=== PATIENT | female | born 1985 | race Caucasian/White ===

== ENCOUNTER 2017-05-29 12:57 | Inpatient (IN) | payer MEDICAID ==
[~2017-05-29] VITALS: Ht 154.9 cm; Wt 63.5 kg
[2017-05-29] MEDS: DEXT 5%/LR + PITOCIN 20UNITS/L 1,000 ML IV SCH (13:17)
[2017-05-29] MEDS ORDERED: METHYLERGONOVINE MALEATE 0.2 MG/ML IM PRN (13:30)
[2017-05-29] MEDS ORDERED: LIDOCAINE HCL 1% 20ML VIAL (Pyxis) INJ INFIL SCH (13:30)
[2017-05-29] MEDS ORDERED: BUTORPHANOL TARTRATE 2 MG/ML VIAL IV PRN ×3 (13:30→23:00)
[2017-05-29] MEDS ORDERED: PENICILLIN G POTASSIUM 5 MMU in SODIUM CHLORIDE 0.9% 100 ML IV SCH (13:30)
[2017-05-29] MEDS ORDERED: NALOXONE HCL 0.4 MG/ML 1ML VIAL IM PRN (13:30)
[2017-05-29] MEDS ORDERED: PENICILLIN G POTASSIUM 5 MMU in DEXT 5% WATER 100 ML IV SCH (13:30)
[2017-05-29] MEDS: LACTATED RINGERS 1,000 ML IV SCH ×2 (14:17→14:28)
[2017-05-29] MEDS ORDERED: MORPHINE SULFATE/PF 1MG/ML 10ML AMP ONE (14:38)
[2017-05-29] MEDS ORDERED: FENTANYL CITRATE/PF 50MCG/ML 2ML VIAL ONE ×3 (14:38→21:47)
[2017-05-29] MEDS ORDERED: PROPOFOL 200MG/20ML VIAL IV ONE ×2 (14:39→17:52)
[2017-05-29] MEDS ORDERED: OXYTOCIN 10 UNITS/ML 1ML ONE ×2 (14:43→16:52)
[2017-05-29] MEDS ORDERED: EPHEDRINE SULFATE 50MG/ML VIAL ONE (14:43)
[2017-05-29] MEDS ORDERED: ONDANSETRON HCL 4MG/2ML VIAL ONE ×2 (14:43→21:54)
[2017-05-29] MEDS ORDERED: GLYCOPYRROLATE 0.2 MG/ML 2ML VIAL ONE ×2 (14:44→19:26)
[2017-05-29] MEDS ORDERED: PHENYLEPHRINE HCL 10 MG/ML 1ML (IV VIAL) IV ONE (14:45)
[2017-05-29 14:47] LABS: BASOPHILS % 0.5 % (0.0-2.0); EOSINOPHILS % 0.1 % (0.0-5.0); HEMATOCRIT. 30.8 % (36.0-48.0); HEMOGLOBIN. 10.1 g/dL (12.0-16.0); LYMPHOCYTES % 8.5 % (20.0-50.0); MEAN CORPUSCULAR HEMOGLOBIN 23.9 pg (28.0-32.0); MEAN CORPUSCULAR VOLUME 72.9 fL (81.0-99.0); MEAN PLATELET VOLUME 9.4 fl (7.4-10.4); MONOCYTES % 4.9 % (2.0-8.0); PLATELET 209 x1000/uL (130-400); RED BLOOD CELL COUNT 4.22 mill/uL (4.2-5.4); RED CELL DISTRIBUTION WIDTH 15.3 % (11.6-14.6)
[2017-05-29] MEDS ORDERED: CITRIC ACID/SODIUM CITRATE SOLN 30ML UDC PO NR (15:00)
[2017-05-29 15:01] LABS: INR 0.9; PARTIAL THROMBOPLASTIN TIME 25.2 sec (23.4-31.0); PROTHROMBIN TIME 9.8 sec (9.4-11.6)
[2017-05-29 15:01] LABS: CLARITY URINE CLEAR (CLEAR); COLOR URINE YELLOW (YELLOW); KETONES URINE NEGATIVE (NEGATIVE); LEUKOCYTE ESTERASE URINE NEGATIVE (NEGATIVE); NITRITE URINE NEGATIVE (NEGATIVE); OCCULT BLOOD URINE TRACE (NEGATIVE); PH URINE 6.5 (4.5-8.0); PROTEIN URINE NEGATIVE (NEGATIVE); UROBILINOGEN URINE 0.2 E.U./dL (0.2-1.0)
[2017-05-29 15:29] LABS: *AMPHETAMINES SCREEN URINE NEGATIVE (NEGATIVE); *BARBITURATES SCREEN URINE NEGATIVE (NEGATIVE); *BENZODIAZEPINES SCREEN URINE NEGATIVE (NEGATIVE); *COCAINE SCREEN URINE NEGATIVE (NEGATIVE); CANNABINOID URINE SCREEN NEGATIVE (NEGATIVE); METHADONE URINE SCREEN NEGATIVE (NEGATIVE); OPIATES URINE SCREEN NEGATIVE (NEGATIVE); PHENCYCLIDINE URINE SCREEN NEGATIVE (NEGATIVE)
[2017-05-29] MEDS ORDERED: METOCLOPRAMIDE HCL 10MG/2ML VIAL ONE (15:38)
[2017-05-29 15:52] LABS: HEPATITIS B SURFACE ANTIGEN NEGATIVE; RUBELLA IGG 70.6 IU/mL (4.99-10)
[2017-05-29] MEDS ORDERED: CEFAZOLIN SODIUM 1000MG/VIAL ONE (16:24)
[2017-05-29] MEDS ORDERED: DIPHENHYDRAMINE 50MG/ML VIAL ONE (16:34)
[2017-05-29] MEDS ORDERED: MIDAZOLAM HCL 2 MG/2 ML VIAL ONE ×2 (16:35→16:43)
[2017-05-29] MEDS ORDERED: METHYLENE BLUE 50 MG/10 ML AMP IV ONE (16:52)
[2017-05-29] MEDS ORDERED: LIDOCAINE HCL 1% 20ML VIAL (Pyxis) INJ ONE (17:11)
[2017-05-29 17:24] LABS: BG BASE EXCESS -6.7 mmol/L (-2.0-2.0); BG FRACTION INSPIRED OXYGEN 21; BG HCO3 ACT 21.3 mmol/L (22.0-26.0); BG PCO2 52.3 mmHg (35.0-45.0); BG PH 7.228 (7.350-7.450); BG SAMPLE SITE CORD; BG VENT MODE ROOM AIR
[2017-05-29 17:25] LABS: BG BASE EXCESS -7.9 mmol/L (-2.0-2.0); BG FRACTION INSPIRED OXYGEN 21; BG HCO3 ACT 21.1 mmol/L (22.0-26.0); BG PCO2 57.6 mmHg (35.0-45.0); BG PH 7.182 (7.350-7.450); BG SAMPLE SITE CORD; BG VENT MODE ROOM AIR
[2017-05-29] MEDS ORDERED: PENICILLIN G POTASSIUM 2.5 MMU in SODIUM CHLORIDE 0.9% 50 ML IV SCH (17:30)
[2017-05-29 17:41] LABS: HEMATOCRIT. 26.4 % (36.0-48.0); HEMOGLOBIN. 8.5 g/dL (12.0-16.0); MEAN CORPUSCULAR HEMOGLOBIN 23.5 pg (28.0-32.0); MEAN CORPUSCULAR VOLUME 73.2 fL (81.0-99.0); MEAN PLATELET VOLUME 9.4 fl (7.4-10.4); PLATELET 174 x1000/uL (130-400); RED BLOOD CELL COUNT 3.61 mill/uL (4.2-5.4)
[2017-05-29 18:02] LABS: PLATELET ESTIMATE NORMAL
[2017-05-29] MEDS ORDERED: SUCCINYLCHOLINE CHLORIDE 200MG/10ML VIAL IV ONE (18:02)
[2017-05-29] MEDS ORDERED: ROCURONIUM BROMIDE 10MG/ML VIAL 5ML IV ONE ×2 (18:17→20:21)
[2017-05-29 18:59] LABS: CHLORIDE 107 mEq/L (98-107)
[2017-05-29] MEDS ORDERED: ONDANSETRON HCL 4MG/2ML VIAL IV PRN ×2 (19:15→23:45)
[2017-05-29] MEDS ORDERED: NALOXONE HCL 0.4 MG/ML 1ML VIAL IV PRN (19:15)
[2017-05-29] MEDS ORDERED: DIPHENHYDRAMINE 50MG/ML VIAL IV PRN (19:15)
[2017-05-29] MEDS ORDERED: NEOSTIGMINE METHYLSULFATE 1MG/ML 10 ML VIAL ONE (19:26)
[2017-05-29] MEDS ORDERED: GENTAMICIN SULFATE IV SCH (19:30)
[2017-05-29] MEDS ORDERED: SODIUM CHLORIDE 0.9% IV SCH (19:30)
[2017-05-29] MEDS ORDERED: LANOLIN OINT 0.25 GM TUBE TOP PRN (23:45)
[2017-05-29] MEDS ORDERED: AMPICILLIN 2,000 MG in SODIUM CHLORIDE 0.9% 100 ML IV SCH (23:45)
[2017-05-29] MEDS ORDERED: HYDROMORPHONE HCL/PF 2MG/ML CPJ IM PRN (23:45)
[2017-05-29] MEDS ORDERED: DIPHENHYDRAMINE 25MG CAPSULE PO PRN (23:45)
[2017-05-29] MEDS ORDERED: DEXT 5%/LR + PITOCIN 20UNITS/L 1,000 ML IV SCH (23:45)
[2017-05-30] MEDS: CLINDAMYCIN 900 MG in DEXTROSE 5% WATER 50 ML IV SCH ×4 (01:31→22:21)
[2017-05-30 02:20] VITALS: BP 117/78
[2017-05-30] MEDS: AMPICILLIN 2,000 MG in SODIUM CHLORIDE 0.9% 100 ML IV SCH ×4 (02:25→21:13)
[2017-05-30 02:28] LABS: HEMATOCRIT. 30.7 % (36.0-48.0); HEMOGLOBIN. 10.1 g/dL (12.0-16.0); MEAN CORPUSCULAR HEMOGLOBIN 26.3 pg (28.0-32.0); MEAN CORPUSCULAR VOLUME 79.5 fL (81.0-99.0); MEAN PLATELET VOLUME 9.7 fl (7.4-10.4); PLATELET 172 x1000/uL (130-400); RED BLOOD CELL COUNT 3.86 mill/uL (4.2-5.4); RED CELL DISTRIBUTION WIDTH 17.9 % (11.6-14.6)
[2017-05-30 03:00] VITALS: BP 117/81
[2017-05-30 04:30] VITALS: BP 130/83
[2017-05-30 07:34] VITALS: BP 128/67
[2017-05-30] MEDS: SIMETHICONE 80MG TABLET CHEW PO SCH ×3 (08:15→17:21)
[2017-05-30] MEDS: PRENATAL VIT/FE FUMARATE/FA TABLET PO SCH (08:16)
[2017-05-30] MEDS: HYDROCODONE/ACETAMINOPHEN 5/325MG TABLET PO PRN ×2 (11:00→17:21)
[2017-05-30] MEDS: GENTAMICIN SULFATE IV SCH ×2 (11:01→22:54)
[2017-05-30] MEDS: SODIUM CHLORIDE 0.9% IV SCH ×2 (11:01→22:54)
[2017-05-30] MEDS: LACTATED RINGERS 1,000 ML IV SCH (11:03)
[2017-05-30] MEDS: FERROUS SULFATE 325MG TABLET PO SCH ×2 (13:00→17:22)
[2017-05-30 13:56] LABS: PLATELET ESTIMATE NORMAL
[2017-05-30 16:07] LABS: BASOPHILS % 0.1 % (0.0-2.0); HEMOGLOBIN. 8.6 g/dL (12.0-16.0); LYMPHOCYTES % 5.6 % (20.0-50.0); MEAN CORPUSCULAR HEMOGLOBIN 26.1 pg (28.0-32.0); MEAN CORPUSCULAR VOLUME 78.7 fL (81.0-99.0); MEAN PLATELET VOLUME 9.9 fl (7.4-10.4); MONOCYTES % 6.1 % (2.0-8.0); NEUTROPHILS % 88.2 % (40.0-76.0); PLATELET 171 x1000/uL (130-400); RED CELL DISTRIBUTION WIDTH 18.2 % (11.6-14.6)
[2017-05-30] MEDS ORDERED: SODIUM CHLORIDE 0.9% 500 ML IV ONE ×2 (16:15→21:15)
[2017-05-30 16:30] VITALS: BP 121/82
[2017-05-30 19:18] VITALS: BP 134/86
[2017-05-30] MEDS ORDERED: FUROSEMIDE 40MG/4ML VIAL IV SCH (23:00)
[2017-05-31] VITALS (9 sets, daily range): BP systolic 120–153; BP diastolic 66–82
[2017-05-31] MEDS: SIMETHICONE 80MG TABLET CHEW PO SCH ×4 (00:12→22:23)
[2017-05-31] MEDS: DOCUSATE SODIUM 100MG CAPSULE PO SCH ×2 (00:12→22:23)
[2017-05-31] MEDS: HYDROCODONE/ACETAMINOPHEN 5/325MG TABLET PO PRN ×4 (00:15→18:34)
[2017-05-31] MEDS: AMPICILLIN 2,000 MG in SODIUM CHLORIDE 0.9% 100 ML IV SCH ×5 (02:42→18:34)
[2017-05-31] MEDS: CLINDAMYCIN 900 MG in DEXTROSE 5% WATER 50 ML IV SCH (03:54)
[2017-05-31 08:12] LABS: MEAN CORPUSCULAR VOLUME 78.1 fL (81.0-99.0); MEAN PLATELET VOLUME 8.8 fl (7.4-10.4); PLATELET 142 x1000/uL (130-400); RED BLOOD CELL COUNT 2.64 mill/uL (4.2-5.4); RED CELL DISTRIBUTION WIDTH 18.3 % (11.6-14.6)
[2017-05-31 08:16] LABS: HEMATOCRIT. 20.6 % (36.0-48.0); HEMOGLOBIN. 6.9 g/dL (12.0-16.0)
[2017-05-31 08:35] LABS: CHLORIDE 107 mEq/L (98-107); GENTAMICIN TROUGH 5.3 ug/mL (<2.0); PHOSPHORUS 5.3 mg/dL (2.5-4.9)
[2017-05-31] MEDS: FERROUS SULFATE 325MG TABLET PO SCH ×2 (09:18→18:46)
[2017-05-31] MEDS: PRENATAL VIT/FE FUMARATE/FA TABLET PO SCH (09:18)
[2017-05-31] MEDS: GENTAMICIN SULFATE IV SCH (10:07)
[2017-05-31] MEDS: SODIUM CHLORIDE 0.9% IV SCH (10:07)
[2017-05-31] MEDS ORDERED: FUROSEMIDE 40MG/4ML VIAL IVP NR (15:30)
[2017-05-31] MEDS ORDERED: ALBUMIN HUMAN 25GM/100ML (25%) IV NR (16:00)
[2017-06-01] VITALS (8 sets, daily range): BP systolic 124–140; BP diastolic 64–83
[2017-06-01] MEDS: AMPICILLIN 2,000 MG in SODIUM CHLORIDE 0.9% 100 ML IV SCH ×5 (00:33→23:31)
[2017-06-01] MEDS: HYDROCODONE/ACETAMINOPHEN 5/325MG TABLET PO PRN ×3 (00:35→17:22)
[2017-06-01 06:50] LABS: HEMATOCRIT. 25.9 % (36.0-48.0); HEMOGLOBIN. 8.8 g/dL (12.0-16.0); MEAN CORPUSCULAR HEMOGLOBIN 27.4 pg (28.0-32.0); MEAN CORPUSCULAR VOLUME 80.4 fL (81.0-99.0); MEAN PLATELET VOLUME 9.4 fl (7.4-10.4); PLATELET 154 x1000/uL (130-400); RED BLOOD CELL COUNT 3.22 mill/uL (4.2-5.4); RED CELL DISTRIBUTION WIDTH 17.9 % (11.6-14.6)
[2017-06-01 07:28] LABS: GENTAMICIN RANDOM 1.7 ug/mL; PHOSPHORUS 5.1 mg/dL (2.5-4.9)
[2017-06-01] MEDS: FERROUS SULFATE 325MG TABLET PO SCH ×3 (08:51→17:23)
[2017-06-01] MEDS: SIMETHICONE 80MG TABLET CHEW PO SCH ×4 (08:52→21:01)
[2017-06-01] MEDS: PRENATAL VIT/FE FUMARATE/FA TABLET PO SCH (08:52)
[2017-06-01] MEDS: DEXT 5%/0.45% NACL KCL 10MEQ/L 1,000 ML IV SCH (10:59)
[2017-06-01 13:05] LABS: PLATELET ESTIMATE NORMAL
[2017-06-01] MEDS: DEXT 5%/LR + PITOCIN 20UNITS/L 1,000 ML IV SCH (13:17)
[2017-06-01 14:20] LABS: PLATELET ESTIMATE NORMAL
[2017-06-01] MEDS: DOCUSATE SODIUM 100MG CAPSULE PO SCH (21:01)
[2017-06-02] VITALS: BP 144/76
[2017-06-02] MEDS ORDERED: BISACODYL 10MG SUPP PR SCH (00:15)
[2017-06-02 04:00] VITALS: BP 139/75
[2017-06-02] MEDS: DEXT 5%/0.45% NACL KCL 10MEQ/L 1,000 ML IV SCH ×3 (05:23→13:53)
[2017-06-02] MEDS: AMPICILLIN 2,000 MG in SODIUM CHLORIDE 0.9% 100 ML IV SCH ×3 (05:23→17:27)
[2017-06-02 05:40] LABS: HEMATOCRIT. 25.5 % (36.0-48.0); HEMOGLOBIN. 8.5 g/dL (12.0-16.0); MEAN CORPUSCULAR HEMOGLOBIN 27.2 pg (28.0-32.0); MEAN CORPUSCULAR VOLUME 81.1 fL (81.0-99.0); MEAN PLATELET VOLUME 9.1 fl (7.4-10.4); PLATELET 166 x1000/uL (130-400); RED BLOOD CELL COUNT 3.15 mill/uL (4.2-5.4); RED CELL DISTRIBUTION WIDTH 17.8 % (11.6-14.6)
[2017-06-02 06:16] LABS: GENTAMICIN RANDOM 0.2 ug/mL
[2017-06-02 08:00] VITALS: BP 158/87
[2017-06-02] MEDS: PRENATAL VIT/FE FUMARATE/FA TABLET PO SCH (08:22)
[2017-06-02] MEDS: FERROUS SULFATE 325MG TABLET PO SCH ×3 (08:31→17:25)
[2017-06-02] MEDS: SIMETHICONE 80MG TABLET CHEW PO SCH ×4 (08:31→21:15)
[2017-06-02] MEDS: HYDROCODONE/ACETAMINOPHEN 5/325MG TABLET PO PRN ×2 (11:52→17:52)
[2017-06-02 12:00] VITALS: BP 164/90
[2017-06-02] MEDS ORDERED: GENTAMICIN 80MG PREMIX 100 ML IV SCH (12:00)
[2017-06-02 16:00] VITALS: BP 155/87
[2017-06-02 16:30] LABS: PLATELET ESTIMATE NORMAL
[2017-06-02 20:00] VITALS: BP 139/80
[2017-06-02] MEDS: DOCUSATE SODIUM 100MG CAPSULE PO SCH (21:14)
[2017-06-02] MEDS: IBUPROFEN 400MG TABLET PO PRN (21:15)
[2017-06-02] MEDS ORDERED: BISACODYL 10MG SUPP PR PRN (23:00)
[2017-06-03] VITALS: BP 146/78
[2017-06-03] MEDS: AMPICILLIN 2,000 MG in SODIUM CHLORIDE 0.9% 100 ML IV SCH ×5 (00:15→23:47)
[2017-06-03] MEDS: DEXT 5%/0.45% NACL KCL 10MEQ/L 1,000 ML IV SCH ×3 (00:15→18:13)
[2017-06-03 04:00] VITALS: BP 159/82
[2017-06-03 04:57] LABS: BASOPHILS % 0.5 % (0.0-2.0); EOSINOPHILS % 1.8 % (0.0-5.0); HEMATOCRIT. 25.7 % (36.0-48.0); HEMOGLOBIN. 8.5 g/dL (12.0-16.0); LYMPHOCYTES % 10.9 % (20.0-50.0); MEAN CORPUSCULAR HEMOGLOBIN 27.4 pg (28.0-32.0); MEAN CORPUSCULAR VOLUME 82.2 fL (81.0-99.0); MEAN PLATELET VOLUME 8.6 fl (7.4-10.4); MONOCYTES % 9.6 % (2.0-8.0); NEUTROPHILS % 77.2 % (40.0-76.0); PLATELET 154 x1000/uL (130-400); RED BLOOD CELL COUNT 3.12 mill/uL (4.2-5.4); RED CELL DISTRIBUTION WIDTH 17.9 % (11.6-14.6)
[2017-06-03 08:00] VITALS: BP 165/90
[2017-06-03] MEDS: PRENATAL VIT/FE FUMARATE/FA TABLET PO SCH (08:30)
[2017-06-03] MEDS: FERROUS SULFATE 325MG TABLET PO SCH ×3 (09:03→18:12)
[2017-06-03] MEDS: SIMETHICONE 80MG TABLET CHEW PO SCH ×4 (09:04→21:00)
[2017-06-03] MEDS: IBUPROFEN 400MG TABLET PO PRN ×2 (09:10→19:03)
[2017-06-03 12:00] VITALS: BP 165/90
[2017-06-03] MEDS: GENTAMICIN SULFATE 80 MG in SODIUM CHLORIDE 0.9% 50 ML IV SCH (13:00)
[2017-06-03 16:00] VITALS: BP 156/88
[2017-06-03] MEDS ORDERED: ALBUMIN HUMAN 25GM/100ML (25%) IV NR (18:00)
[2017-06-03] MEDS: CALCIUM ACETATE 667MG CAPSULE PO SCH (18:12)
[2017-06-03] MEDS: DOCUSATE SODIUM 100MG CAPSULE PO SCH (21:00)
[2017-06-04] VITALS: BP 155/86
[2017-06-04] MEDS: IBUPROFEN 400MG TABLET PO PRN ×2 (00:35→10:47)
[2017-06-04] MEDS: DEXT 5%/0.45% NACL KCL 10MEQ/L 1,000 ML IV SCH ×4 (03:22→22:58)
[2017-06-04 04:00] VITALS: BP 150/93
[2017-06-04] MEDS: AMPICILLIN 2,000 MG in SODIUM CHLORIDE 0.9% 100 ML IV SCH ×2 (05:36→11:13)
[2017-06-04 06:30] LABS: HEMATOCRIT. 25.4 % (36.0-48.0); HEMOGLOBIN. 8.6 g/dL (12.0-16.0); MEAN CORPUSCULAR HEMOGLOBIN 27.7 pg (28.0-32.0); MEAN CORPUSCULAR VOLUME 81.9 fL (81.0-99.0); MEAN PLATELET VOLUME 8.7 fl (7.4-10.4); PLATELET 160 x1000/uL (130-400); RED CELL DISTRIBUTION WIDTH 18.1 % (11.6-14.6)
[2017-06-04 08:00] VITALS: BP 159/92
[2017-06-04] MEDS: CALCIUM ACETATE 667MG CAPSULE PO SCH ×3 (08:35→17:52)
[2017-06-04] MEDS: PRENATAL VIT/FE FUMARATE/FA TABLET PO SCH (08:35)
[2017-06-04] MEDS: FERROUS SULFATE 325MG TABLET PO SCH ×3 (08:35→17:52)
[2017-06-04] MEDS: SIMETHICONE 80MG TABLET CHEW PO SCH ×4 (08:35→20:48)
[2017-06-04 10:40] LABS: PLATELET ESTIMATE NORMAL
[2017-06-04 12:00] VITALS: BP 157/85
[2017-06-04] MEDS: GENTAMICIN SULFATE 80 MG in SODIUM CHLORIDE 0.9% 50 ML IV SCH (12:40)
[2017-06-04] MEDS: AMLODIPINE 2.5MG TABLET PO SCH (13:44)
[2017-06-04 16:00] VITALS: BP 164/94
[2017-06-04] MEDS: AMPICILLIN 500 MG in SODIUM CHLORIDE 0.9% 50 ML IV SCH (17:51)
[2017-06-04 20:00] VITALS: BP 136/78
[2017-06-04] MEDS: DOCUSATE SODIUM 100MG CAPSULE PO SCH (20:48)
[2017-06-04] MEDS: HYDROCODONE/ACETAMINOPHEN 5/325MG TABLET PO PRN (22:40)
[2017-06-05] VITALS (7 sets, daily range): BP systolic 138–164; BP diastolic 16–95
[2017-06-05] MEDS: AMPICILLIN 500 MG in SODIUM CHLORIDE 0.9% 50 ML IV SCH ×4 (01:23→17:36)
[2017-06-05] MEDS: HYDROCODONE/ACETAMINOPHEN 5/325MG TABLET PO PRN (05:40)
[2017-06-05] MEDS: AMLODIPINE 2.5MG TABLET PO SCH (06:49)
[2017-06-05] MEDS: SIMETHICONE 80MG TABLET CHEW PO SCH ×4 (09:24→21:00)
[2017-06-05] MEDS: PRENATAL VIT/FE FUMARATE/FA TABLET PO SCH (09:24)
[2017-06-05] MEDS: FERROUS SULFATE 325MG TABLET PO SCH ×3 (09:25→17:36)
[2017-06-05] MEDS: CALCIUM ACETATE 667MG CAPSULE PO SCH ×3 (09:25→17:36)
[2017-06-05] MEDS: DEXT 5%/0.45% NACL KCL 10MEQ/L 1,000 ML IV SCH ×3 (09:26→22:16)
[2017-06-05] MEDS ORDERED: AMLODIPINE 2.5MG TABLET PO SCH (13:30)
[2017-06-05] MEDS ORDERED: CLONIDINE 0.1MG TABLET PO PRN (15:30)
[2017-06-05] MEDS: DOCUSATE SODIUM 100MG CAPSULE PO SCH (21:00)
[2017-06-05] MEDS: AMLODIPINE 5MG TABLET PO SCH (22:13)
[2017-06-06] VITALS: BP 149/90
[2017-06-06 04:00] VITALS: BP 146/90
[2017-06-06] MEDS: DEXT 5%/0.45% NACL KCL 10MEQ/L 1,000 ML IV SCH (05:16)
[2017-06-06 07:32] LABS: HEMATOCRIT. 28.1 % (36.0-48.0); HEMOGLOBIN. 9.3 g/dL (12.0-16.0); MEAN CORPUSCULAR HEMOGLOBIN 27.3 pg (28.0-32.0); MEAN CORPUSCULAR VOLUME 82.4 fL (81.0-99.0); MEAN PLATELET VOLUME 8.7 fl (7.4-10.4); PLATELET 206 x1000/uL (130-400); RED BLOOD CELL COUNT 3.41 mill/uL (4.2-5.4); RED CELL DISTRIBUTION WIDTH 18.2 % (11.6-14.6)
[2017-06-06 07:55] LABS: PHOSPHORUS 3.4 mg/dL (2.5-4.9)
[2017-06-06 08:00] VITALS: BP 149/94
[2017-06-06] MEDS: CALCIUM ACETATE 667MG CAPSULE PO SCH ×3 (09:37→17:56)
[2017-06-06] MEDS: SIMETHICONE 80MG TABLET CHEW PO SCH ×4 (09:37→20:41)
[2017-06-06] MEDS: PRENATAL VIT/FE FUMARATE/FA TABLET PO SCH (09:37)
[2017-06-06] MEDS: AMLODIPINE 5MG TABLET PO SCH ×2 (09:38→20:42)
[2017-06-06] MEDS: FERROUS SULFATE 325MG TABLET PO SCH ×3 (09:38→17:57)
[2017-06-06] MEDS: HYDROCODONE/ACETAMINOPHEN 5/325MG TABLET PO PRN (11:06)
[2017-06-06 12:00] VITALS: BP 142/87
[2017-06-06] MEDS: CITRIC ACID/SODIUM CITRATE SOLN 30ML UDC PO SCH ×2 (13:41→17:56)
[2017-06-06 14:04] LABS: NUCLEATED RED BLOOD CELLS 1 /100 WBC
[2017-06-06 14:05] LABS: PLATELET ESTIMATE NORMAL
[2017-06-06 16:00] VITALS: BP 154/89
[2017-06-06] MEDS: DEXT 5%/0.45% NACL 1000ML 1,000 ML IV SCH (16:06)
[2017-06-06] MEDS: ENOXAPARIN 30MG/0.3ML SYR SUBCUT SCH (16:30)
[2017-06-06 20:00] VITALS: BP 153/90
[2017-06-06] MEDS: DOCUSATE SODIUM 100MG CAPSULE PO SCH (20:41)
[2017-06-07] VITALS: BP 143/86
[2017-06-07] MEDS: DEXT 5%/0.45% NACL 1000ML 1,000 ML IV SCH ×3 (00:10→13:18)
[2017-06-07 04:00] VITALS: BP 143/83
[2017-06-07 06:25] LABS: BASOPHILS % 0.9 % (0.0-2.0); EOSINOPHILS % 2.3 % (0.0-5.0); HEMATOCRIT. 27.6 % (36.0-48.0); HEMOGLOBIN. 9.3 g/dL (12.0-16.0); LYMPHOCYTES % 9.4 % (20.0-50.0); MEAN CORPUSCULAR HEMOGLOBIN 27.6 pg (28.0-32.0); MEAN CORPUSCULAR VOLUME 82.1 fL (81.0-99.0); MEAN PLATELET VOLUME 8.3 fl (7.4-10.4); MONOCYTES % 9.5 % (2.0-8.0); NEUTROPHILS % 77.9 % (40.0-76.0); PLATELET 200 x1000/uL (130-400); RED BLOOD CELL COUNT 3.36 mill/uL (4.2-5.4); RED CELL DISTRIBUTION WIDTH 18.5 % (11.6-14.6)
[2017-06-07 08:00] VITALS: BP 146/89
[2017-06-07] MEDS: ENOXAPARIN 30MG/0.3ML SYR SUBCUT SCH (08:20)
[2017-06-07] MEDS: CITRIC ACID/SODIUM CITRATE SOLN 30ML UDC PO SCH ×3 (08:22→17:51)
[2017-06-07] MEDS: CALCIUM ACETATE 667MG CAPSULE PO SCH ×3 (08:23→17:52)
[2017-06-07] MEDS: AMLODIPINE 5MG TABLET PO SCH ×2 (08:23→21:00)
[2017-06-07] MEDS: PRENATAL VIT/FE FUMARATE/FA TABLET PO SCH (08:23)
[2017-06-07] MEDS: FERROUS SULFATE 325MG TABLET PO SCH ×4 (08:25→21:00)
[2017-06-07] MEDS: SIMETHICONE 80MG TABLET CHEW PO SCH ×4 (08:25→21:00)
[2017-06-07] MEDS: HYDROCODONE/ACETAMINOPHEN 5/325MG TABLET PO PRN (08:25)
[2017-06-07 12:42] VITALS: BP 147/94
[2017-06-07] MEDS: HYDRALAZINE HCL 10MG TABLET PO SCH ×2 (13:28→22:00)
[2017-06-07 16:00] VITALS: BP 151/92
[2017-06-07 17:02] LABS: CLARITY URINE CLEAR (CLEAR); COLOR URINE YELLOW (YELLOW); KETONES URINE NEGATIVE (NEGATIVE); LEUKOCYTE ESTERASE URINE TRACE (NEGATIVE); NITRITE URINE NEGATIVE (NEGATIVE); OCCULT BLOOD URINE 2+ (NEGATIVE); PH URINE >=9.0 (4.5-8.0); PROTEIN URINE NEGATIVE (NEGATIVE); UROBILINOGEN URINE 0.2 E.U./dL (0.2-1.0)
[2017-06-07 17:04] VITALS: BP 151/92
[2017-06-07] MEDS: DOCUSATE SODIUM 100MG CAPSULE PO SCH (21:00)
[2017-06-08] MEDS: FERROUS SULFATE 325MG TABLET PO SCH ×4 (00:07→17:42)
[2017-06-08] MEDS: HYDRALAZINE HCL 10MG TABLET PO SCH ×3 (00:07→21:35)
[2017-06-08] MEDS: DEXT 5%/0.45% NACL 1000ML 1,000 ML IV SCH ×2 (00:18→14:14)
[2017-06-08 00:30] VITALS: BP 124/68
[2017-06-08 04:00] VITALS: BP 124/62
[2017-06-08 08:00] VITALS: BP 147/88
[2017-06-08] MEDS: SIMETHICONE 80MG TABLET CHEW PO SCH ×4 (08:20→21:34)
[2017-06-08] MEDS: CITRIC ACID/SODIUM CITRATE SOLN 30ML UDC PO SCH ×3 (08:45→17:42)
[2017-06-08] MEDS: AMLODIPINE 5MG TABLET PO SCH ×2 (08:46→21:34)
[2017-06-08] MEDS: CALCIUM ACETATE 667MG CAPSULE PO SCH ×3 (08:46→17:42)
[2017-06-08] MEDS: PRENATAL VIT/FE FUMARATE/FA TABLET PO SCH (08:46)
[2017-06-08] MEDS: ENOXAPARIN 30MG/0.3ML SYR SUBCUT SCH (08:47)
[2017-06-08 12:00] VITALS: BP 143/96
[2017-06-08 16:00] VITALS: BP 136/89
[2017-06-08 20:00] VITALS: BP 129/86
[2017-06-08] MEDS: DOCUSATE SODIUM 100MG CAPSULE PO SCH (21:34)
[2017-06-09] VITALS: BP 137/78
[2017-06-09 04:00] VITALS: BP 130/88
[2017-06-09] MEDS: DEXT 5%/0.45% NACL 1000ML 1,000 ML IV SCH (05:24)
[2017-06-09] MEDS: HYDRALAZINE HCL 10MG TABLET PO SCH (05:24)
[2017-06-09 07:06] LABS: BASOPHILS % 0.7 % (0.0-2.0); EOSINOPHILS % 1.6 % (0.0-5.0); HEMATOCRIT. 33.7 % (36.0-48.0); HEMOGLOBIN. 11.1 g/dL (12.0-16.0); LYMPHOCYTES % 7.6 % (20.0-50.0); MEAN CORPUSCULAR HEMOGLOBIN 26.9 pg (28.0-32.0); MEAN CORPUSCULAR VOLUME 81.9 fL (81.0-99.0); MEAN PLATELET VOLUME 7.6 fl (7.4-10.4); MONOCYTES % 6.3 % (2.0-8.0); NEUTROPHILS % 83.8 % (40.0-76.0); PLATELET 248 x1000/uL (130-400); RED BLOOD CELL COUNT 4.12 mill/uL (4.2-5.4); RED CELL DISTRIBUTION WIDTH 19.1 % (11.6-14.6)
[2017-06-09 08:00] VITALS: BP 140/89
[2017-06-09] MEDS: SIMETHICONE 80MG TABLET CHEW PO SCH ×2 (08:20→13:20)
[2017-06-09] MEDS: AMLODIPINE 5MG TABLET PO SCH (08:44)
[2017-06-09] MEDS: CITRIC ACID/SODIUM CITRATE SOLN 30ML UDC PO SCH ×2 (08:44→13:00)
[2017-06-09] MEDS: FERROUS SULFATE 325MG TABLET PO SCH ×2 (08:44→12:50)
[2017-06-09] MEDS: CALCIUM ACETATE 667MG CAPSULE PO SCH ×2 (08:44→12:50)
[2017-06-09] MEDS: PRENATAL VIT/FE FUMARATE/FA TABLET PO SCH (08:44)
[2017-06-09] MEDS: HYDROCODONE/ACETAMINOPHEN 5/325MG TABLET PO PRN (08:44)
[2017-06-09] MEDS ORDERED: ENOXAPARIN 40MG/0.4ML SYR SUBCUT SCH (09:00)
[2017-06-09] MEDS ORDERED: LIDOCAINE HCL 2% JELLY 5ML TOP NR (11:00)
[2017-06-09 12:00] VITALS: BP 138/86
[2017-06-09 12:02] VITALS: BP 18/138
== END 2017-06-09 13:40 | disposition home health service (06) | DRG 540 ==
LOC: L&D 12:57 → OBSVTOIN 12:57 → 7EST PP/OB 05-30 01:48 → 6EST 05-31 16:10
PROVIDERS: ADMIT Specialist; ATTEND Specialist
PROC: 30233N1 Transfusion of Nonautologous Red Blood Cells into Peripheral Vein, Percutaneous Approach (ICD-10-PCS; 2017-05-29)
PROC: 10D00Z1 Extraction of Products of Conception, Low, Open Approach (ICD-10-PCS; principal; 2017-05-30)
PROC: 0UQG0ZZ Repair Vagina, Open Approach (ICD-10-PCS; 2017-05-30)
PROC: 0TQB0ZZ Repair Bladder, Open Approach (ICD-10-PCS; 2017-05-30)
DX: O42.913 Preterm premature rupture of membranes, unspecified as to length of time between rupture and onset of labor, third trimester (principal); N17.0 Acute kidney failure with tubular necrosis; A41.9 Sepsis, unspecified organism; E43 Unspecified severe protein-calorie malnutrition; N13.30 Unspecified hydronephrosis; O10.92 Unspecified pre-existing hypertension complicating childbirth; N82.0 Vesicovaginal fistula; O99.02 Anemia complicating childbirth; O76 Abnormality in fetal heart rate and rhythm complicating labor and delivery; D64.9 Anemia, unspecified; O98.82 Other maternal infectious and parasitic diseases complicating childbirth; O25.2 Malnutrition in childbirth; O69.1XX0 Labor and delivery complicated by cord around neck, with compression, not applicable or unspecified; O99.284 Endocrine, nutritional and metabolic diseases complicating childbirth; E87.5 Hyperkalemia; Z3A.35 35 weeks gestation of pregnancy; O71.4 Obstetric high vaginal laceration alone; Z37.0 Single live birth; Z79.899 Other long term (current) drug therapy; Z68.26 Body mass index [BMI] 26.0-26.9, adult; N32.89 Other specified disorders of bladder
CPT/HCPCS: 36415; 36600; 71045; 76770; 76805; 76818; 80048; 80053; 80170; 80305; 81001; 82040; 82248; 82570; 82805; 83605; 83735; 83935; 83970; 84100; 84300; 85025; 85610; 85730; 86038; 86592; 86703; 86762; 86850; 86900; 86920; 87086; 87340; 88307; J0171; J0290; J0330; J0690; J1200; J1580; J1650; J1940; J2250; J2274; J2370; J2405; J2540; J2590; J2704; J2710; J2765; J3010; J3490; J7040; J7050; J7060; J7120; P9016; P9047; Q9968; A4315

== ENCOUNTER 2017-07-11 10:46 | Emergency (ER) | payer MEDICAID ==
[~2017-07-11] VITALS: Ht 157.5 cm; Wt 50.6 kg
[2017-07-11 11:51] LABS: BASOPHILS % 1.4 % (0.0-2.0); EOSINOPHILS % 6.9 % (0.0-5.0); HEMATOCRIT. 34.2 % (36.0-48.0); HEMOGLOBIN. 11.5 g/dL (12.0-16.0); LYMPHOCYTES % 14.1 % (20.0-50.0); MEAN CORPUSCULAR HEMOGLOBIN 28.2 pg (28.0-32.0); MEAN CORPUSCULAR VOLUME 83.8 fL (81.0-99.0); MEAN PLATELET VOLUME 8.2 fl (7.4-10.4); MONOCYTES % 7.8 % (2.0-8.0); NEUTROPHILS % 69.8 % (40.0-76.0); PLATELET 252 x1000/uL (130-400); RED BLOOD CELL COUNT 4.07 mill/uL (4.2-5.4); RED CELL DISTRIBUTION WIDTH 16.8 % (11.6-14.6)
[2017-07-11 12:01] LABS: CHLORIDE 109 mEq/L (98-107)
[2017-07-11 13:49] LABS: CLARITY URINE CLOUDY (CLEAR); COLOR URINE YELLOW (YELLOW); KETONES URINE NEGATIVE (NEGATIVE); LEUKOCYTE ESTERASE URINE 3+ (NEGATIVE); NITRITE URINE POSITIVE (NEGATIVE); OCCULT BLOOD URINE 2+ (NEGATIVE); PH URINE 6.5 (4.5-8.0); PROTEIN URINE NEGATIVE (NEGATIVE); SPECIFIC GRAVITY URINE 1.012 (1.005-1.030); UROBILINOGEN URINE 0.2 E.U./dL (0.2-1.0)
[2017-07-11] MEDS ORDERED: DIATRIZOATE MEGLUMINE 300ML INFUS BTL UR ONE (13:59)
[2017-07-11] MEDS ORDERED: CEFAZOLIN 1000MG PREMIX 50 ML IV ONE (16:15)
[2017-07-11 17:00] VITALS: BP 126/86
[2017-07-11] MEDS ORDERED: CEFAZOLIN 2000MG PREMIX 50 ML IV NR (17:00)
[2017-07-16] MEDS ORDERED: DIATR MEGLU/DIATRIZOATE SOLN 120ML ONE (14:13)
== END 2017-07-11 18:44 | disposition home or self-care (01) ==
LOC: ER 12:25
DX: O86.20 Urinary tract infection following delivery, unspecified (principal)
CPT/HCPCS: 36415; 74455; 80053; 81003; 81025; 85025; 87086; 96365; 99285; J0690; Q9958; Z7610